=== PATIENT | female | born 1970 | race Caucasian/White ===

== ENCOUNTER 2020-04-29 18:11 | Emergency (ER) | payer OTHER, SELFPAY ==
--- NOTE | 2020-04-29 18:20 | ED.SKABFB ---
HPI - Skin/Abscess/Foreign Bdy General Chief complaint: Skin/Abscess/Foreign Body Stated complaint: cyst under eye Time Seen by Provider: 04/29/20 18:44 Source: patient and RN notes reviewed Mode of arrival: ambulatory Limitations: no limitations History of Present Illness HPI narrative: 49-year-old female presents with concern for red nests in her eye. She reports history of a cyst under her eye for 8 to 9 years. Reports that several times in the past 8 to 9 years it has gotten infected . Reports that has not happened in several years. Reports the last 2 days the area has become red, painful and she has green drainage from her eye. She denies fever, vision changes, body aches. In a separate complaint reports that she is in from out of town for a family , has ran out of her trazodone which she takes for sleep. Reports she is in between doctors. Reports due to the in the family she has had anxiety, trouble sleeping and requests a refill of her trazodone. MD complaint: other (Cellulitis) Related Data Home Medications Medication Instructions Recorded Confirmed loratadine [Claritin] 10 mg PO DAILY 04/29/20 04/29/20 trazodone 200 mg PO HS 04/29/20 04/29/20 Allergies Allergy/AdvReac Type Severity Reaction Status Date / Time codeine Allergy Dizziness Verified 04/29/20 18:45 Review of Systems Review of Systems: Narrative: CONSTITUTIONAL: Denies malaise, chills, sweats, or fever. EYES: Denies visual changes. Reports green discharge from the right eye ENT: Denies rhinorrhea, congestion, sinus pain, otalgia or sore throat. CARDIOVASCULAR: Denies chest pain, palpitations RESPIRATORY: Denies cough or dyspnea. GASTROINTESTINAL: Denies abdominal pain, nausea, vomiting SKIN: Reports redness, swelling under the right eye near a chronic cyst MUSCULOSKELETAL: Denies myalgia. NEUROLOGIC: Denies numbness, weakness, or headache. PSYCHIATRIC: Reports anxiety, insomnia All systems reviewed & are unremarkable except as noted in HPI and below PMFSH Comments At time of signature, agree with nursing past medical, surgical, social and family history. There is no relevant family history pertinent to the presenting complaint Exam Narrative: Exam Narrative: GENERAL: Well-appearing, well-nourished, and in no acute distress. HEAD: Normocephalic, atraumatic. EYES: PERRLA, bilateral sclera and conjunctivae clear, and EOMI. No nystagmus. Fung-green discharge of the right eye ENT: Nares clear. Mucous membranes moist. NECK: Supple. CHEST: No respiratory distress. Speaks in full sentences. HEART: Regular rate and rhythm. No murmur heard. SKIN: Warm, dry, no rash. Approximately 1 cm erythematous cyst noted below the right eye, superficial edema below the right eye. No induration NEURO: Alert and oriented x3. PSYCH: Normal mood and affect Course Course Emergency Course: Explained to patient that she Primary care provider for future medication refills. Patient is aware of diagnosis, understands and agrees to treatment plan. Anticipatory guidance given. Patient agrees to follow-up as directed and is aware of reasons to seek care at the emergency department. Portions of this record may have been created with voice recognition software Vital Signs Vital signs: Vital Signs Temperature 98.0 F 04/29/20 18:26 Pulse Rate 92 04/29/20 18:26 Respiratory Rate 18 04/29/20 18:26 Blood Pressure 99/65 L 04/29/20 18:26 Pulse Oximetry 98 04/29/20 18:26 Temperature 98.0 F 04/29/20 18:26 Pulse Rate 92 04/29/20 18:26 Respiratory Rate 18 04/29/20 18:26 Blood Pressure 99/65 L 04/29/20 18:26 Pulse Oximetry 98 04/29/20 18:26 Reviewed. MDM - Skin/Abscess/Foreign Bdy MDM Narrative Medical decision making narrative: Exam findings show no acute concerns or changes; patient is non-toxic appearing and is in no distress. Patient is appropriate for outpatient treatment and follow-up. Critical Care Time Critical Care [facility]
[2020-04-29 18:26] VITALS: BP 99/65; PULSE 92; RESP 18; TEMP 36.7; O2SAT 98
== END 2020-04-29 18:57 | disposition home or self-care (01) ==
PROVIDERS: Emergency Provider Nurse Practitioner
DX: L03.211 Cellulitis of face (principal); Z76.0 Encounter for issue of repeat prescription; G47.9 Sleep disorder, unspecified
CPT/HCPCS: 99213; G0463